=== PATIENT | female | born 1950 | race Caucasian/White ===

== ENCOUNTER 2017-02-06 07:11 | Day surgery (SDC) | payer MEDICARE, OTHER ==
[2016-04-12 13:59] VITALS: BMI 28.1
[2017-02-06] MEDS ORDERED: Lactated Ringer's 500 ML IV ONE (07:57)
[2017-02-06] MEDS ORDERED: Benzocaine/Butamben/Tetracai 14-2-2% TOP Spray TOP ONE (08:22)
[2017-02-06] MEDS ORDERED: Propofol 10 mg/ml Inj (20 ML) ONE (09:31)
[2017-02-06 10:15] VITALS: RESP 17
[2017-02-06 10:22] VITALS: BP 129/60; PULSE 55; TEMP 97.3; O2SAT 100
== END 2017-02-06 10:35 | disposition home or self-care (01) ==
LOC: H.ENDO 07:11
PROVIDERS: ATTEND Internal Medicine Gastroenterology
DX: Z12.11 Encounter for screening for malignant neoplasm of colon (principal); K92.2 Gastrointestinal hemorrhage, unspecified; E03.9 Hypothyroidism, unspecified; I10 Essential (primary) hypertension; K64.8 Other hemorrhoids; K44.9 Diaphragmatic hernia without obstruction or gangrene; K22.8 Other specified diseases of esophagus; K31.9 Disease of stomach and duodenum, unspecified
CPT/HCPCS: 43239; 45378; 88305; J2001; J2704; J7120